=== PATIENT | female | born 1965 | race African-American/Black ===

== ENCOUNTER 2018-04-24 16:51 | Emergency (ER) | payer OTHER ==
[2018-04-24 17:05] VITALS: TEMP 97.7; BMI 32.7
[2018-04-24] MEDS ORDERED: ONDANSETRON *ODT* 4 MG TABLET SL ONE ×2 (17:21→17:45)
[2018-04-24 17:39] LABS: BASO % 0.9 % (0-2.0); EOS % 2.3 % (0-4.5); HEMATOCRIT 42.5 % (32.4-45.2); MCH 28.6 pg (25.7-33.7); MCHC 32.9 g/dl (32.0-36.0); MEAN CELL VOLUME 86.9 fl (80-96); MEAN PLT VOLUME 7.5 fl (7.5-11.1); MONO % 5.3 % (3.8-10.2); NEUT % 62.5 % (42.8-82.8); PLATELET COUNT 318 K/MM3 (134-434); RBC 4.89 M/mm3 (3.60-5.2); RDW 14.3 % (11.6-15.6); WHITE BLOOD COUNT 6.6 K/mm3 (4.0-10.0)
[2018-04-24] MEDS ORDERED: MECLIZINE HCL 25 MG TABLET (FP) PO ONE (17:40)
--- NOTE | 2018-04-24 17:48 | PDOC ---
History of Present Illness - General Chief Complaint: Blood Pressure Problem Stated Complaint: BLOOD PRESSURE PROBLEM Time Seen by Provider: 04/24/18 17:09 History Source: Patient Exam Limitations: No Limitations - History of Present Illness Initial Comments: 04/24/18 17:44 Pt is a 53yo f with PMH of HTN presenting to ED with complaints of sudden onset dizziness. Pt said she woke up at 6am today and everything was fine. She went back to sleep and woke up at 9am and that is when she had sudden onset dizziness. Pt describes the dizziness as room is spinning and is afraid to look around the room as it will make the dizziness worse. She endorses nausea. She denies changes in vision, tinnitus, ear fullness, chest pain, shortness of breath, back pain, neck pain, headache, recent trauma, abdominal pain, vomiting , blood in stools, fevers. She endorses chest tightness which resolved earlier today. She says she feels as if she will fall down when she walks. HAs not fallen down or hit her head or had syncope. Pt says she checked her bp 1 hour prior to arrival and it was 214/110. PMD: Skye PMH: HTN PSH: hysterectomy Meds: Sage Social: denies Allergies: naproxen (hives) Past History - Past Medical History Allergies/Adverse Reactions: Allergies Allergy/AdvReac Type Severity Reaction Status Date / Time naproxen Allergy Verified 04/24/18 17:05 shellfish derived Allergy Verified 04/24/18 17:05 FRUITS AND NUTS Allergy Uncoded 04/24/18 17:05 Home Medications: Ambulatory Orders Acetaminophen [Tylenol .Regular Strength -] 650 mg PO Q4H PRN #0 tablet Vitamin E 100 unit PO DAILY #0 capsule 07/17/12 Anemia: Yes (borderline) Asthma: No Cancer: No Cardiac Disorders: No CVA: No COPD: No CHF: No Dementia: No Diabetes: No (hypoglycemia) GI Disorders: No Disorders: No HTN: Yes Hypercholesterolemia: No Liver Disease: No Seizures: No Thyroid Disease: No - Surgical History Abdominal Surgery: Yes Appendectomy: No Cardiac Surgery: No Cholecystectomy: No Lung Surgery: No Neurologic Surgery: No Orthopedic Surgery: No - Suicide/Smoking/Psychosocial Hx Smoking Status: No Smoking History: Never smoked Number of Cigarettes Smoked Daily: 0 Hx Alcohol Use: No Drug/Substance Use Hx: No Substance Use Type: None Hx Substance Use Treatment: No Review of Systems - Review of Systems Constitutional: No: Chills, Fever, Weakness HEENTM: No: Eye Pain, Recent change in vision, Double Vision, Ear Pain, Tinnitus Respiratory: No: Cough, Shortness of Breath Cardiac (ROS): Yes: Lightheadedness, Chest Tightness (earlier today). No: Chest Pain, Palpitations, Syncope ABD/GI: Yes: Nausea. No: Constipated, Diarrhea, Rectal Bleeding, Vomiting, Tarry Stools : No: Burning, Dysuria, Frequency, Flank Pain Musculoskeletal: No: Back Pain, Joint Pain, Neck Pain Integumentary: No: Symptoms Reported Neurological: Yes: Dizziness. No: Headache, Numbness, Paresthesia, Tingling, Tremors, Weakness *Physical Exam - Vital Signs Last Vital Signs Temp Pulse Resp BP Pulse Ox 97.7 F 66 16 133/79 99 04/24/18 17:01 04/24/18 17:34 04/24/18 17:33 04/24/18 17:33 04/24/18 17:34 - Physical Exam General Appearance: Yes: Nourished, Appropriately Dressed. No: Apparent Distress HEENT: positive: EOMI (illicits dizziness), GINNA, Normal ENT Inspection Neck: positive: Trachea midline, Supple. negative: Carotid bruit, Lymphadenopathy (R), Lymphadenopathy (L) Respiratory/Chest: positive: Lungs Clear, Normal Breath Sounds. negative: Crackles, Rales, Rhonchi, Stridor, Wheezing Cardiovascular: positive: Regular Rhythm, Regular Rate, S1, S2. negative: Edema , JVD, Murmur Vascular Pulses: Carotid (R): 2+, Carotid (L): 2+, Dorsalis-Pedis (R): 2+, Doralis-Pedis (L): 2+ Gastrointestinal/Abdominal: positive: Normal Bowel Sounds, Soft. negative: Distended, Guarding, Rebound, Tenderness Musculoskeletal: negative: CVA Tenderness Extremity: positive: Normal Capillary Refill. negative: Pedal Edema, Swelling, Calf Tenderness Integumentary: positive: Normal Color, Dry, Warm. negative: Cold Neurologic: positive: applications engineer II-XII NML intact, Fully Oriented, Alert, Normal Mood/ Affect, Normal Response, Motor Strength 5/5, Finger to Nose ED Treatment Course - LABORATORY CBC & Chemistry Diagram: 04/24/18 17:26 04/24/18 17:26 - Medications Given in the ED: ED Medications Discontinued Medications Generic Name Dose Route Start Last Admin Trade Name Minorq PRN Reason Stop Dose Admin Ondansetron HCl 4 mg 04/24/18 17:21 04/24/18 17:36 Zofran Odt - SL 04/24/18 17:22 Not Given ONCE ONE Medical Decision Making - Medical Decision Making 04/24/18 17:47 Pt is a 53yo f with PMH of HTN presenting to ED with complaints of sudden onset dizziness + nausea Vitals: wnl PE: eye movements caused vertiginous symptoms. otherwise wnl 04/24/18 18:44 Pt still feeling dizzy. 04/24/18 18:44
[2018-04-24] MEDS ORDERED: MECLIZINE HCL 25 MG TABLET (FP) ONE (17:49)
[2018-04-24] MEDS ORDERED: ONDANSETRON *ODT* 4 MG TABLET ONE (17:50)
[2018-04-24 18:03] LABS: ALK PHOS 69 U/L (45-117); ANION GAP 8 MMOL/L (8-16); BILIRUBIN,TOTAL 0.3 mg/dL (0.2-1); BLOOD UREA NITROGEN 12 mg/dL (7-18); CHLORIDE 106 mmol/L (98-107); CO2 26 mmol/L (21-32); CREATININE 0.7 mg/dL (0.55-1.3); GLUCOSE,RANDOM 115 mg/dL (74-106); POTASSIUM 3.8 mmol/L (3.5-5.1); SGOT/AST 25 U/L (15-37); SGPT/ALT 26 U/L (13-61); SODIUM 140 mmol/L (136-145)
[2018-04-24] MEDS ORDERED: SODIUM CHLORIDE 1,000 ML IV STA (18:47)
[2018-04-24] MEDS ORDERED: METOCLOPRAMIDE HCL INJECTION 10 MG/2 ML VIAL IVPUSH ONE (18:58)
--- NOTE | 2018-04-24 19:10 | PDOC ---
*Physical Exam - Vital Signs Last Vital Signs Temp Pulse Resp BP Pulse Ox 97.7 F 66 16 133/79 99 04/24/18 17:01 04/24/18 17:34 04/24/18 17:33 04/24/18 17:33 04/24/18 17:34 ED Treatment Course - LABORATORY CBC & Chemistry Diagram: 04/24/18 17:26 04/24/18 17:26 - ADDITIONAL ORDERS Additional order review: Laboratory Results 04/24/18 04/24/18 17:32 17:26 Sodium 140 Potassium 3.8 Chloride 106 Carbon Dioxide 26 Anion Gap 8 BUN 12 Creatinine 0.7 Creat Clearance w eGFR > 60 POC Glucometer 131.73059 Random Glucose 115 H Calcium 9.0 Total Bilirubin 0.3 AST 25 ALT 26 Alkaline Phosphatase 69 Troponin I < 0.02 Total Protein 8.0 Albumin 4.0 04/24/18 04/24/18 17:32 17:26 RBC 4.89 MCV 86.9 MCHC 32.9 RDW 14.3 MPV 7.5 Neutrophils % 62.5 D Lymphocytes % 29.0 D Monocytes % 5.3 Eosinophils % 2.3 Basophils % 0.9 POC Glucometer 131.41364 - Medications Given in the ED: ED Medications Discontinued Medications Generic Name Dose Route Start Last Admin Trade Name Freq PRN Reason Stop Dose Admin Meclizine HCl 25 mg 04/24/18 17:40 04/24/18 17:52 Antivert - PO 04/24/18 17:41 25 mg ONCE ONE Administration Ondansetron HCl 4 mg 04/24/18 17:21 04/24/18 17:36 Zofran Odt - SL 04/24/18 17:22 Not Given ONCE ONE Ondansetron HCl 4 mg 04/24/18 17:45 04/24/18 17:52 Zofran Odt - SL 04/24/18 17:46 4 mg ONCE ONE Administration Medical Decision Making - Medical Decision Making Pt was signed out to me by resident Dr. Pak, who explained the presentation, ED course, any pending results, and needed interventions. Pending results include CT head and neck. Pt is currently stable and is lying comfortably. We provided 25 mg IV benadryl and 10 mg IV reglan for continued vertigo. Pt receiving IV fluids. Labs and ECG WNL. 04/24/18 19:05 Pt has been placed in transport book to go to CT scan. 04/24/18 19:[address] scan. 04/24/18 19:[address] scan, and states vertigo has improved after benadryl and reglan. Pending CT results. 04/24/18 21:02 CT head showed no acute pathology. Pending neck CT read. Called radiology to have neck CT pushed to imaging director of instruction again. Pt feeling better after reglan and benadryl. Will provide these medications to pt pharmacy and provide a work note. 04/24/18 21:31 CT neck showed no carotid stenosis or dissection. Considering normal lab results and imaging, pt can be discharged to home with follow-up. Pt advised to follow-up with PCP in 1-2 days and has been referred to Dr. Finnegan (ENT). Strict return precautions provided with pt understanding. 04/24/18 21:57 *DC/Admit/Observation/Transfer Diagnosis at time of Disposition: Vertigo - Discharge Dispostion Disposition: HOME Condition at time of disposition: Improved Decision to Admit order: No - Prescriptions Prescriptions: Diphenhydramine HCl [Benadryl -] 25 mg PO Q8H PRN #14 capsule PRN Reason: Vertigo Metoclopramide HCl [Reglan -] 10 mg PO DAILY PRN #14 tablet PRN Reason: Vertigo - Referrals Referrals: Marcelo Cheung MD [Staff Physician] - Javier Finnegan MD [Staff Physician] - - Patient Instructions Printed Discharge Instructions: DI for Vertigo Additional Instructions: You were seen in the ER today for vertigo. The results of your labs and imaging today were normal. Please follow-up with your primary care doctor and ENT referral within 1-2 days to discuss your visit and make sure your symptoms have improved. Please return to the ER if you have any worsening dizziness, development of fevers or chills, loss of consciousness, inability to tolerate food or fluids, or any other concerns. I have also sent Benadryl 25 mg and Reglan 10 mg to your pharmacy, which you can take as needed for vertigo. Please take the benadryl before the reglan, as taking the reglan by itself can produce side effects. Please do not take this medication before operating any machinery, as it can make you drowsy. - Post Discharge Activity Forms/Work/School Notes: Back to Work
[2018-04-24] MEDS ORDERED: METOCLOPRAMIDE HCL INJECTION 10 MG/2 ML VIAL ONE (19:15)
--- NOTE | 2018-04-24 19:43 | PDOC ---
Attending Attestation - HPI HPI: 04/24/18 19:46 The patient is a 53 year old female, with a significant PMH of HTN and vertigo, who presents to the emergency department with a sudden onset of dizziness that began this morning at 9 am today. The patient states she felt like the room was spinning and feels like she will fall down if she walks. She endorses associated symptoms of nausea and chest tightness in the morning. Patient reports blood pressure was 214/210 upon 1 hour after arrival. The patient denies shortness of breath and headache Denies any falls, head trauma or syncope. Denies any vision changes, tinnitus and ear fullness. Denies fever, chills,vomit, diarrhea and constipation. Allergies:naproxen, shellfish derived, fruits and nuts Past surgical history: Abdominal surgery Social history: None reported PCP: Dr. Cheung Documentation prepared by Jaylyn Montero, acting as medical assistant prn for Angela Robertson MD. - Physicial Exam PE: 04/24/18 19:49 GENERAL: Well developed, well nourished. Awake and alert. No acute distress. HEENT: +Nystagmus. Normocephalic, atraumatic. PERRLA, EOMI. No conjunctival pallor. Sclera are non-icteric. Moist mucous membranes. Oropharynx is clear. NECK: Supple. Full ROM. No JVD. Carotid pulses 2+ and symmetric, without bruits. No thyromegaly. No lymphadenopathy. CARDIOVASCULAR: Regular rate and rhythm. No murmurs, rubs, or gallops. Distal pulses are 2+ and symmetric. PULMONARY: No evidence of respiratory distress. Lungs clear to auscultation bilaterally. No wheezing, rales or rhonchi. MUSCULOSKELETAL Normal range of motion at all joints. No bony deformities or tenderness. No CVA tenderness. EXTREMITIES: No cyanosis. No clubbing. No edema. No calf tenderness. SKIN: Warm and dry. Normal capillary refill. No rashes. No jaundice. NEUROLOGICAL: Alert, awake, appropriate. PSYCHIATRIC: Cooperative. Good eye contact. Appropriate mood and affect. Documentation prepared by Jaylyn Montero, acting as medical assistant prn for Angela Robertson MD. <Jaylyn Montero - Last Filed: 04/24/18 19:46> - Resident Resident Name: Mellisa,Cherelle - ED Attending Attestation I have performed the following: I have examined & evaluated the patient, The case was reviewed & discussed with the resident, I agree w/resident's findings & plan, Exceptions are as noted - Medical Decision Making 04/27/18 01:07 imp: vertigo,resolved pt d/c home ,meclizine <Angela Robertson - Last Filed: 04/27/18 01:08>
[2018-04-24 22:52] VITALS: BP 132/67; PULSE 64
--- NOTE | 2018-04-25 18:29 | EKG ---
Test Reason : Blood Pressure : / mmHG Vent. Rate : 082 BPM Atrial Rate : 082 BPM P-R Int : 180 ms QRS Dur : 088 ms QT Int : 392 ms P-R-T Axes : 049 022 037 degrees QTc Int : 457 ms NORMAL SINUS RHYTHM NORMAL ECG WHEN COMPARED WITH ECG OF 09-JUL-2012 11:34, T WAVE VARIATION Confirmed by MELY GARCIA MD ([id number]) on 04/25/2018 6:28:57 PM Referred By: Confirmed By:MELY GARCIA MD
== END 2018-04-24 22:59 | disposition home or self-care (01) ==
LOC: JER 16:51
PROC: 3E0337Z Introduction of Electrolytic and Water Balance Substance into Peripheral Vein, Percutaneous Approach (ICD-10-PCS; principal; 2018-04-24)
PROC: 3E033GC Introduction of Other Therapeutic Substance into Peripheral Vein, Percutaneous Approach (ICD-10-PCS; 2018-04-24)
PROC: 3E033GC Introduction of Other Therapeutic Substance into Peripheral Vein, Percutaneous Approach (ICD-10-PCS; 2018-04-24)
DX: R42 Dizziness and giddiness (principal)
CPT/HCPCS: 36415; 70450-TC; 70498-TC; 80053; 82962; 84484; 85025; 93005; 93010; 99283-25; J7030; Q0162